=== PATIENT | female | born 1985 | race Caucasian/White ===

== ENCOUNTER 2018-04-25 09:49 | Emergency (ER) | payer OTHER ==
[~2018-04-25] VITALS: Ht 157.5 cm; Wt 68.2 kg
[2018-04-25 09:55] VITALS: TEMP 98.6
[2018-04-25] MEDS ORDERED: CEPHALEXIN500 M1 PO (11:33)
[2018-04-25 11:46] VITALS: BP 119/87; PULSE 92
== END 2018-04-25 11:50 | disposition home or self-care (01) ==
LOC: COL.ER 09:49
DX: S62.663A Nondisplaced fracture of distal phalanx of left middle finger, initial encounter for closed fracture (principal); S61.305A Unspecified open wound of left ring finger with damage to nail, initial encounter; Z23 Encounter for immunization; Z98.890 Other specified postprocedural states; W23.0XXA Caught, crushed, jammed, or pinched between moving objects, initial encounter; Y92.89 Other specified places as the place of occurrence of the external cause